=== PATIENT | male | born 1955 | race Two or more races ===

== ENCOUNTER 2021-02-09 17:43 | Emergency (ER) | payer OTHER ==
[~2021-02-09] VITALS: Ht 172.7 cm; Wt 91.0 kg
[2021-02-09 17:46] VITALS: BP 195/120
== END 2021-02-09 18:28 ==
LOC: ER 17:43
DX: F41.0 Panic disorder [episodic paroxysmal anxiety] (principal); F41.9 Anxiety disorder, unspecified; I10 Essential (primary) hypertension
CPT/HCPCS: 99283